=== PATIENT | female | born 1980 | race Caucasian/White ===

== ENCOUNTER 2017-04-20 04:11 | Inpatient (IN) | payer MEDICAID ==
[~2017-04-20] VITALS: Ht 165.1 cm; Wt 81.0 kg
--- NOTE | ~2017-04-20 | OR ---
PATIENT'S NAME: ANI [facility] AGE: 37 Y [address] ROOM: [address] [id number] LOCATION: GOBS ADMIT DATE: 04/20/2017 OR/Procedure Report DISCHARGE DATE: 04/22/2017 FAMILY PHYSICIAN: Popeye Kraus MD ATTENDING PHYSICIAN: Popeye Kraus SURGEON: Popeye Kraus MD LAUNDRY ATTENDANT: DATE OF PROCEDURE: 04/20/2017 CLINICAL HISTORY: The patient is a 37-year-old, 2, para 11 , who is at 39 and 1/7th weeks and woke up this morning around 2:00 a.m. with contractions. They steadily increased and so she came in Labor and Delivery around 4:00 a.m. She was noted be 3 to 4 cm. When I saw her around 7:30 a.m., she was 4 cm, 80%, assisted rupture of membranes performed with clear fluid. had been uncomplicated. PREOPERATIVE DIAGNOSIS: Term . POSTOPERATIVE DIAGNOSIS: Term . PROCEDURE: 1. Assisted rupture of membranes with clear fluid. 2. Vaginal delivery without complication. 3. Light meconium noted of fluid at delivery. PROCEDURE IN DETAIL: After rupture of membranes, the patient progressed nicely in over the next approximately 3 hours went to complete. She did receive an epidural. I arrived and the patient was prepped and draped in the usual fashion. Baby was OA and with the second push delivered 8 pounds 13 ounces viable female infant, with score of 8 and 9. Baby was laid on mother's abdomen and after some stimulation cried vigorously. The cord was clamped and cut and then handed off to nursery nurse for assessment. Mother desired assessment by nursery nurse prior to doing skin to skin. Placenta was then delivered spontaneously and intact with a 3-vessel cord. There was a small second-degree perineal laceration that was sutured with 3-0 Vicryl in a locking fashion of the vaginal mucosa, nonlocking fashion of the deep perineum and then nonlocking fashion of the superficial perineum and then tied off inside the introitus. There was no vaginal sidewall laceration or hematoma. Mom and baby remained in Labor and Delivery room in good condition. ESTIMATED BLOOD LOSS: 250 mL. ANESTHESIA: Epidural. PATIENT'S NAME: ANI [facility] AGE: 37 Y [address] ROOM: [place] [address] LOCATION: GOBS ADMIT DATE: 04/20/2017 OR/Procedure Report DISCHARGE DATE: 04/22/2017 FAMILY PHYSICIAN: Popeye Kraus MD ATTENDING PHYSICIAN: Popeye Kraus MD TITO ESCOBAR/jose juan /[id number] d: 04/20/17 1732 t: 04/26/17 1318, OPERATIVE SUMMARY
[~2017-04-20 04:11] MED LIST: ACETAMINOPHEN325 MG PO; PRENATAL 1+1)(P1 TAB PO; SURFAK240 MG PO; ZANTAC (NON-FO150 MG PO
[2017-04-20 08:22] LABS: BASOPHIL % 0.2 %; EOSINOPHIL # 0.1 K/uL (0.0-0.5); EOSINOPHIL % 1.5 %; HEMATOCRIT 35.2 % (33.0-46.0); HEMOGLOBIN 12.1 g/dL (11.0-15.0); IMMATURE GRANULOCYTE % 0.4 %; LYMPHOCYTE # 1.7 K/uL (0.8-4.0); LYMPHOCYTE % 21.2 %; MCH 32.1 pg (27.0-34.0); MCHC 34.4 gm/dL (32.0-36.5); MCV 93.4 fl (83.0-98.0); MONOCYTE # 0.6 K/uL (0.0-1.0); MONOCYTE % 7.2 %; MPV 11.6 fl (9.4-12.4); NEUTROPHIL # (ANC) 5.7 K/uL (1.8-7.8); NEUTROPHIL % 69.5 %; NRBC % 0 /100WBC (0-0.00); PLATELET COUNT 203 K/uL (150-450); RBC 3.77 M/uL (3.50-5.50); RDW-CV 14.2 % (11.9-14.6); WBC 8.2 K/uL (4.0-11.0)
--- NOTE | 2017-04-21 04:12 | NUR ---
VSS, Last given 1 Percocet at 0230. Fundus firm, 1below
[2017-04-21 05:50] LABS: BASOPHIL % 0.4 %; EOSINOPHIL # 0.1 K/uL (0.0-0.5); EOSINOPHIL % 1.1 %; HEMATOCRIT 31.4 % (33.0-46.0); HEMOGLOBIN 10.4 g/dL (11.0-15.0); IMMATURE GRANULOCYTE # 0.1 K/uL (0.0-0.3); IMMATURE GRANULOCYTE % 0.5 %; LYMPHOCYTE # 2.3 K/uL (0.8-4.0); MCH 31.2 pg (27.0-34.0); MCHC 33.1 gm/dL (32.0-36.5); MCV 94.3 fl (83.0-98.0); MONOCYTE # 0.7 K/uL (0.0-1.0); MONOCYTE % 6.3 %; MPV 10.9 fl (9.4-12.4); NEUTROPHIL # (ANC) 7.4 K/uL (1.8-7.8); NEUTROPHIL % 69.7 %; NRBC % 0 /100WBC (0-0.00); PLATELET COUNT 168 K/uL (150-450); RBC 3.33 M/uL (3.50-5.50); RDW-CV 14.1 % (11.9-14.6); WBC 10.6 K/uL (4.0-11.0)
== END 2017-04-22 11:40 | disposition disaster alternative care site (69) | DRG 775 ==
LOC: GOBM 04:11 → GOBS 04:12 → GOBM 04:13 → GOBS 04-22 11:40 → GOBM 04-26 09:18
PROVIDERS: ADMIT Family Medicine
DX: O70.1 Second degree perineal laceration during delivery (principal); Z37.0 Single live birth; O77.0 Labor and delivery complicated by meconium in amniotic fluid; Z3A.39 39 weeks gestation of pregnancy; R94.6 Abnormal results of thyroid function studies; Z87.410 Personal history of cervical dysplasia
CPT/HCPCS: J2001; J2590; J2791; J3010; J7120

== ENCOUNTER → 2017-06-26 | Outpatient (CLI) | payer MEDICAID | LOC: LFPA 17:44 | DX: Z39.2 Encounter for routine postpartum follow-up (principal) | CPT/HCPCS: G0145 ==